=== PATIENT | female | born 1945 | race Caucasian/White ===

== ENCOUNTER → 2023-05-15 | Emergency (ER) | payer OTHER ==
[~2023-05-15] MED LIST: NA CHLORIDE 0.9% 500 ML ONE
--- OUTSIDE RECORDS SUMMARY | 2023-05-15 11:30 | XMS REPORT | Continuity of Care Document ---
Author Name Unknown Address [address] [place] [address] thconnect Address [address] [facility] [address] [place] [address] Care Team Providers Care Manager Branch Name Role Phone ANDREW_RADHA_Black_D Attending Clinician Unavailab le ANDREW_RADHA_Black_D Admitting Clinician Unavailab le Payers Payer Name Policy Type Policy Number Effective Date Expirati on Date Source 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 Ordering Clinician Indication Dosage Frequency Signature (SIG) Comments Components Source amlodipine 5 mg tablet TAKE 1 TABLET BY MOUTH DAILY AT BEDTIME amlodipine 5 mg tablet TAKE 1 TABLET BY MOUTH DAILY AT BEDTIME No amlodipine 5 mg tablet TAKE 1 TABLET BY MOUTH DAILY AT BEDTIME [facility] aspirin aspirin No aspirin [facility] ezetimibe 10 mg-simvasta tin 20 mg tablet TAKE 1 TABLET BY MOUTH DAILY AFTER THE EVENING MEAL ezetimibe 10 mg-simvasta tin 20 mg tablet TAKE 1 TABLET BY MOUTH DAILY AFTER THE EVENING MEAL No ezetimibe 10 mg-simvast atin 20 mg tablet TAKE 1 TABLET BY MOUTH DAILY AFTER THE EVENING MEAL [facility] Histex DM 2.5 mg-10 mg-20 mg/5 mL oral liquid TAKE 10 ML BY MOUTH EVERY 4 HOURS NEEDED FOR COUGH Histex DM 2.5 mg-10 mg-20 mg/5 mL oral liquid TAKE 10 ML BY MOUTH EVERY 4 HOURS NEEDED FOR COUGH No Histex DM 2.5 mg-10 mg-20 mg/5 mL oral liquid TAKE 10 ML BY MOUTH EVERY 4 HOURS NEEDED FOR COUGH [facility] olmesartan 40 mg tablet TAKE 1 TABLET BY MOUTH DAILY olmesartan 40 mg tablet TAKE 1 TABLET BY MOUTH DAILY No olmesartan 40 mg tablet TAKE 1 TABLET BY MOUTH DAILY [facility] Suprep Bowel Prep Kit 17.5 gram-3.13 gram-1.6 gram oral solution USE DIRECTED Suprep Bowel Prep Kit 17.5 gram-3.13 gram-1.6 gram oral solution USE DIRECTED No Suprep Bowel Prep Kit 17.5 gram-3.13 gram-1.6 gram oral solution USE DIRECTED [facility] Travatan Z 0.004 % eye drops INSTILL 1 DROP IN EACH EYE EVERY NIGHT AT BEDTIME Travatan Z 0.004 % eye drops INSTILL 1 DROP IN EACH EYE EVERY NIGHT AT BEDTIME No Travatan Z 0.004 % eye drops INSTILL 1 DROP IN EACH EYE EVERY NIGHT AT BEDTIME [facility] Tums Tums No Tums [facility] Vital Signs Vital Name Observation Time Observation Value Comments S ource BP Diastolic 2022-04-19 00:00:00 72 mm[Hg] [facility] BP Systolic 2022-04-19 00:00:00 118 mm[Hg] [facility] Body Weight 2022-04-19 00:00:00 129 [lb_av] [facility] Procedures Procedure Date / Time Performed Performing Clinicia n Source Colonoscopy [facility] Other [facility] Tonsillectomy [facility] Plan of Care Planned Activity Planned Date Details Comments Source Diagnostic Test Pending 2022-04-19 00:00:00 Cytomegalovirus Ab [Titer] in Serum or Plasma by Latex agglutination [code = 5121-9] [facility] Future Appointment 2024-04-19 00:00:00 Huang Klein; , [place] [address] [facility] Encounters Start Date/Time End Date/Time Encounter Type Admission Type Attending Clinicians Care Facility Care Department Encounter ID Source 2022-04-19 00:00:00 2022-04-19 00:00:00 Niharika Payne MD: Huang Brand, [place] [address] , Ph. [facility] [place] Office [id number] [facility] 2022-04-18 00:00:00 2022-04-18 00:00:00 Outpatient [facility] Black_D PRIV PRIV [id number] [facility] 2022-04-18 00:00:00 2022-04-18 00:00:00 Outpatient [facility] Black_D PRIV PRIV [id number] [facility] 2022-04-18 00:00:00 2022-04-18 00:00:00 Outpatient [facility] Black_D PRIV PRIV [id number] [facility] 2022-04-18 00:00:00 2022-04-18 00:00:00 Outpatient [facility] Black_D PRIV PRIV [id number] [facility] 2022-04-17 00:00:00 2022-04-17 00:00:00 Outpatient [facility] Black_D PRIV PRIV [id number] [facility] 2021-02-27 00:00:00 2021-02-27 00:00:00 Outpatient [facility] Black_D PRIV PRIV [id number] [facility]
--- NOTE | 2023-05-15 12:48 | RAD REPORT ---
EXAM DESCRIPTION: RAD - Chest Single View - 05/15/2023 12:44 pm CLINICAL HISTORY: COVID +;Cough;Dyspnea Chest pain. COMPARISON: Chest Pa And Lat (2 Views) dated 03/30/2019 FINDINGS: Portable technique limits examination quality. The lungs are mildly emphysematous but grossly clear. The heart is normal in size. No displaced fract ures. IMPRESSION: No acute intrathoracic process suspected.
[2023-05-15 13:30] LABS: Absolute Lymphocytes (CBC) 0.9 K/uL (0.7-4.9); Hematocrit 40.4 % (36.0-45.0); Lymphocytes % 28.3 % (15.3-44.8); MCV 87.3 fL (80-100); MPV 7.5 fL (7.6-11.3); Platelets 213 thou/uL (152-406); RBC Red Blood Cell Count 4.63 M/uL (3.86-4.86)
[2023-05-15 13:43] LABS: Protime INR 0.99
[2023-05-15 13:52] LABS: Albumin 3.8 g/dL (3.4-5.0); Bilirubin Total 0.3 mg/dL (0.2-1.0); Potassium 4.3 mEq/L (3.5-5.1); Protein, Total 7.8 g/dL (6.4-8.2)
--- NOTE | 2023-05-15 14:30 | EDPHYS ---
Physician Documentation [facility] Name: Monet Moore Age: 78 yrs Sex: Female : 1945 Arrival Date: 05/15/2023 Time: 11:27 Bed 13 Private MD: ED Physician Jason Tracey HPI: 05/15 13:30 This 78 yrs old Female presents to ER via Ambulatory with complaints of Covid+ low o2. rn 13:30 She reports generalized weakness, COVID-positive, started feeling sick this past rn weekend. No chronic lung problems. States felt weak and had to put herself onto the ground. No syncope. No trauma. Oxygen was checked with an O2 sensor and was giving erratic readings so came in for evaluation. States readings showed anywhere from the 70s to the 90s. Patient denies shortness of breath.. Onset: The symptoms/episode began/occurred 5 day(s) ago. Severity of symptoms: At their worst the symptoms were moderate in the emergency department the symptoms have improved. The patient has not experienced similar symptoms in the past. The patient has not recently seen a physician. Historical: - Allergies: 11:51 PENICILLINS; ap3 - PMHx: 11:51 None; ap3 - Immunization history:: Client reports having NOT received the Covid vaccine. Flu vaccine is not up to date. - Social history:: Smoking status: Patient denies any tobacco usage or history of. - Family history:: not pertinent. - Hospitalizations: : No recent hospitalization is reported. ROS: 13:30 Constitutional: Negative for fever, chills, and weight loss, Neck: Negative for injury, rn pain, and swelling, Cardiovascular: Negative for chest pain, palpitations, and edema, Respiratory: Negative for shortness of breath, cough, wheezing, and pleuritic chest pain, Abdomen/GI: Negative for abdominal pain, nausea, vomiting, diarrhea, and constipation, Back: Negative for injury and pain, MS/Extremity: Negative for injury and deformity, Skin: Negative for injury, rash, and discoloration, Neuro: Positive for generalized weakness, negative for focal neurological complaint Exam: 13:30 Constitutional: This is a well developed, well nourished patient who is awake, alert, rn and in no acute distress. Head/Face: Normocephalic, atraumatic. Eyes: Sunken eyes, normal conjunctiva ENT: No stridor Cardiovascular: Regular rate and rhythm. No pulse deficits. Respiratory: No increased work of breathing, no retractions or nasal flaring. MS/ Extremity: Pulses equal, no cyanosis. Neuro: Awake and alert, GCS 15, oriented to person, place, time, and situation. Cranial nerves II-XII grossly intact. Motor strength 5/5 in all extremities. Sensory grossly intact. Cerebellar exam normal. Normal gait. Vital Signs: 11:48 BP 107 / 69; Pulse 62; Resp 18; Temp 98.6; Pulse Ox 100% on R/A; Weight 53.98 kg; ap3 13:25 BP 108 / 68; Pulse 65; Resp 16; Pulse Ox 98% on R/A; mb9 15:39 BP 112 / 70; Pulse 68; Resp 18; Pulse Ox 100% on R/A; mb9 MDM: 11:41 Patient medically screened. rn 14:28 Differential Diagnosis COVID, dehydration, acute renal failure, pneumonia. Data rn reviewed: vital signs, nurses notes, lab test result(s), radiologic studies, plain films, and as a result, I will discharge patient. Counseling: I had a detailed discussion with the patient and/or guardian regarding the historical points, exam findings, and any diagnostic results supporting the discharge/admit diagnosis, lab results, radiology results, the need for outpatient follow up, to return to the emergency department if symptoms worsen or persist or if there are any questions or concerns that arise at home. Special discussion: I discussed with the patient/guardian in detail that at this point there is no indication for admission to the hospital. It is understood, however, that if the symptoms persist or worsen the patient needs to return immediately for re-evaluation. ED course: Oxygen has been normal here the entire time. Stable vital signs.. 14:29 ED course: Chest x-ray clear, no oxygen requirement. No kidney failure. Will DC home rn with return precautions.. 05/15 11:42 Order name: Blood Culture Adult (2) rn 05/15 11:42 Order name: CBC with Diff; Complete Time: 13:45 rn 05/15 11:42 Order name: CMP; Complete Time: 14:06 rn 05/15 11:42 Order name: Lactate w/ 2H reflex if indic.; Complete Time: 14:06 rn 05/15 11:42 Order name: Protime (+inr); Complete Time: 13:45 rn 05/15 11:42 Order name: Ptt, Activated; Complete Time: 13:45 rn 05/15 11:42 Order name: Chest Single View XRAY; Complete Time: 13:20 rn 05/15 11:42 Order name: EKG; Complete Time: 11:42 rn 05/15 11:42 Order name: Accucheck; Complete Time: 13: rn 05/15 11:42 Order name: Cardiac monitoring; Complete Time: 13: rn 05/15 11:42 Order name: EKG - Nurse/Tech; Complete Time: 13: rn 05/15 11:42 Order name: IV Saline Lock - Large Bore; Complete Time: 13: rn 05/15 11:42 Order name: Labs collected and sent; Complete Time: 13: rn 05/15 11:42 Order name: O2 Per Protocol; Complete Time: 13: rn 05/15 11:42 Order name: O2 Sat Monitoring; Complete Time: 13: rn 05/15 11:42 Order name: Vital Signs; Complete Time: 11:57 rn Administered Medications: 14:41 Drug: NS 0.9% IV 500 ml IV at bolus once Route: IV; Rate: bolus; Site: left antecubital;mb9 15:45 Follow up: Response: No adverse reaction; IV Status: Completed infusion mb9 Disposition Summary: 05/15/23 14:29 Discharge Ordered Notes: Location: Home rn Problem: new rn Symptoms: have improved rn Condition: Stable rn Diagnosis - SARS-associated coronavirus as the cause of diseases classified elsewhere rn - Muscle weakness (generalized) rn Followup: rn - With: Private Physician - When: As needed - Reason: Recheck today's complaints, Re-evaluation by your physician Discharge Instructions: - Discharge Summary Sheet rn - COVID-19 rn - 10 Things You Can Do to Manage Your COVID-19 Symptoms at Home - [facility] (11/04/2020) rn - Viral Illness, Adult rn Forms: - Medication Reconciliation Form rn - Thank You Letter rn - 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
--- NOTE | 2023-05-15 14:30 | ER ---
Nurse's Notes [facility] Name: Monet Moore Age: 78 yrs Sex: Female : 1945 Arrival Date: 05/15/2023 Time: 11:27 Bed 13 Private MD: Diagnosis: SARS-associated coronavirus as the cause of diseases classified elsewhere;Muscle weakness (generalized) Presentation: 05/15 11:48 Chief complaint: Spouse and/or significant other states: the patient tested positive ap3 for COVID approx 5 days ago, and was doing better until this morning. Patient states he needed to sit down when she was in the closet because she felt weak. patient denies any syncopal episode, LOC or hitting her head. Patient reports her home pulse-ox was telling them her oxygen level was "low". Coronavirus screen: Client reports previous positive COVID test result. Ebola Screen: No symptoms or risks identified at this time. Initial Sepsis Screen: Does the patient meet any 2 criteria? No. Patient's initial sepsis screen is negative. Does the patient have a suspected source of infection? No. Patient's initial sepsis screen is negative. Risk Assessment: Do you want to hurt yourself or someone else? Patient reports no desire to harm self or others. Onset of symptoms is unknown. 11:48 Method Of Arrival: Ambulatory ap3 11:48 Acuity: JEYSON 3 ap3 Triage Assessment: 11:51 General: Appears ill, Behavior is calm, cooperative, appropriate for age, Reports ap3 fatigue for. Pain: Denies pain. Neuro: Level of Consciousness is awake, alert, obeys commands, Oriented to person, place, time, situation, Appropriate for age Reports weakness in generalized. Cardiovascular: Patient's skin is warm and dry. Respiratory: Airway is patent Respiratory effort is even, unlabored, Respiratory pattern is regular, symmetrical. Historical: - Allergies: 11:51 PENICILLINS; ap3 - PMHx: 11:51 None; ap3 - Immunization history:: Client reports having NOT received the Covid vaccine. Flu vaccine is not up to date. - Social history:: Smoking status: Patient denies any tobacco usage or history of. - Family history:: not pertinent. - Hospitalizations: : No recent hospitalization is reported. Screenin:51 [facility] ED Fall Risk Assessment (Adult) History of falling in the last 3 months, ap3 including since admission No falls in past 3 months (0 pts). Abuse screen: Denies threats or abuse. Nutritional screening: No deficits noted. Tuberculosis screening: No symptoms or risk factors identified. Assessment: 13:00 Reassessment: pt brought back to ER room. mb9 13:25 General: Appears in no apparent distress. Behavior is calm, cooperative. Pain: Denies mb9 pain. Neuro: Pedersen Agitation-Sedation Scale (RASS): 0 - Alert and Calm Level of Consciousness is awake, alert, obeys commands, Oriented to person, place, time, situation, Appropriate for age. Cardiovascular: Patient's skin is warm and dry. Respiratory: Airway is patent Respiratory effort is even, unlabored, Respiratory pattern is regular, symmetrical, Breath sounds are clear bilaterally. GI: Abdomen is flat, non-distended, Bowel sounds present X 4 quads. : No signs and/or symptoms were reported regarding the genitourinary system. EENT: No signs and/or symptoms were reported regarding the EENT system. Derm: Skin is pink, warm \\T\\ dry. Musculoskeletal: Range of motion: intact in all extremities. 14:25 Reassessment: No changes from previously documented assessment. Patient and/or family mb9 updated on plan of care and expected duration. Pain level reassessed. Patient is alert, oriented x 3, equal unlabored respirations, skin warm/dry/pink. 14:41 Reassessment: Discharge pending completion of fluids. mb9 15:39 Reassessment: No changes from previously documented assessment. Patient and/or family mb9 updated on plan of care and expected duration. Pain level reassessed. Patient is alert, oriented x 3, equal unlabored respirations, skin warm/dry/pink. Vital Signs: 11:48 BP 107 / 69; Pulse 62; Resp 18; Temp 98.6; Pulse Ox 100% on R/A; Weight 53.98 kg; ap3 13:25 BP 108 / 68; Pulse 65; Resp 16; Pulse Ox 98% on R/A; mb9 15:39 BP 112 / 70; Pulse 68; Resp 18; Pulse Ox 100% on R/A; mb9 ED Course: 11:33 Patient arrived in ED. gm2 11:41 Jason Tracey MD is Attending Physician. rn 11:50 Triage completed. ap3 11:52 Arm band placed on left wrist. ap3 12:45 Chest Single View XRAY In Process Unspecified. EDMS 12:55 Patient placed in an exam room, on a stretcher. ll1 13:03 Estelita Blackwell, RN is Primary Nurse. mb9 13:11 EKG done, by ED staff, reviewed by Jason Tracey MD. ap3 13:25 Blood Culture Adult (2) Sent. mb9 13:25 CBC with Diff Sent. mb9 13:25 CMP Sent. mb9 13:25 Protime (+inr) Sent. mb9 13:25 Ptt, Activated Sent. mb9 14:00 Inserted saline lock: 22 gauge in left antecubital area, using aseptic technique. mb9 14:48 Inserted saline lock: 22 gauge in right forearm, using aseptic technique. ll1 14:50 IV discontinued, intact, bleeding controlled, No redness/swelling at site. Pressure ll1 dressing applied, L AC. 15:06 No provider procedures requiring assistance completed. mb9 15:39 Patient has correct armband on for positive identification. mb9 Administered Medications: 14:41 Drug: NS 0.9% IV 500 ml IV at bolus once Route: IV; Rate: bolus; Site: left antecubital;mb9 15:45 Follow up: Response: No adverse reaction; IV Status: Completed infusion mb9 Medication: 15:39 VIS not applicable for this client. mb9 Outcome: 14:29 Discharge ordered by . rn 15:45 Discharged to home ambulatory, with family, mb9 15:45 Condition: stable 15:45 Discharge instructions given to patient, Instructed on discharge instructions, follow up and referral plans. Demonstrated understanding of instructions, follow-up care, 15:45 Patient left the ED. mb9 Signatures: Dispatcher [employer] EDMS Jason Tracey MD MD rn Prokisch, Amanda RN RN [id number] Nemo Thomas RN RN ll1 Estelita Blackwell, RN RN mb9 Jacy Caceres gm2 Corrections: (The following items were deleted from the chart) 13:27 13:25 Pulse 65bpm; Resp 16bpm; Pulse Ox 98% RA; mb9 mb9 14:50 14:50 Inserted saline lock: 22 gauge in right forearm, using aseptic technique. ll1 ll1
[2023-05-15 18:15] VITALS: BP 112/70; TEMP 98.6; O2SAT 100
--- NOTE | 2023-05-16 16:29 | EKG ---
Test Date: 2023-05-15 Test Time: 13:09:28 Bmx Rider: ALP MEASUREMENT RESULTS: Intervals: Rate: 57 ID: [id number] QRSD: 86 QT: 416 QTc: 404 Liberal: P: 69 ID: [id number] QRS: 71 T: 74 INTERPRETIVE STATEMENTS: Sinus bradycardia Low voltage QRS Borderline ECG Compared to ECG 10/16/2004 09:26:00 Low QRS voltage now present Sinus rhythm no longer present Electronically Signed On 05-16-23 16:26:08 CORPORATE COMMUNICATIONS SPECIALIST by Greg Falcon
== END ==
LOC: ER 11:27
DX: U07.1 COVID-19 (principal); M62.81 Muscle weakness (generalized); Z88.0 Allergy status to penicillin; Z28.310 Unvaccinated for COVID-19
CPT/HCPCS: 93005; 87040 ×2; 85025; 36415; 85610; 83605; 85730; 80053; 71045; 96360; 99284; J7040